=== PATIENT | male | born 1930 | race Caucasian/White ===

== ENCOUNTER → 2017-07-31 | Outpatient (CLI) | payer MEDICARE ==
[~2017-07-31] MED LIST: AEC81 PO; CLOP75TA32 PO; FINA5TAB41 PO; FISH1CAP65 PO; GABA-531 PO; INSNOV SQ; LEVO50TA11 PO; LISI10TA7 PO; LUTE20TA PO; METO-408 PO; MULT-1285 PO; MULT-209 PO; NPH,100V11 SQ; SIMV80TA5 PO; TAMS0.4C32 PO; VITA150T PO
== END | disposition home or self-care (01) ==
LOC: SHCH 08:50
PROVIDERS: ATTEND Internal Medicine Cardiovascular Disease
DX: I25.10 Atherosclerotic heart disease of native coronary artery without angina pectoris (principal); I67.82 Cerebral ischemia
CPT/HCPCS: 93880

== ENCOUNTER → 2018-10-21 | Outpatient (CLI) | payer MEDICARE ==
[~2018-10-21] MED LIST changes: -SIMV80TA5 PO; +SIMV80TA91 PO
== END | disposition home or self-care (01) ==
LOC: SHCH 09:31
PROVIDERS: ATTEND Internal Medicine Cardiovascular Disease
DX: I65.23 Occlusion and stenosis of bilateral carotid arteries (principal); Z95.5 Presence of coronary angioplasty implant and graft
CPT/HCPCS: 93880

== ENCOUNTER → 2020-02-01 | Outpatient (CLI) | payer MEDICARE | END | disposition home or self-care (01) | LOC: SHCH 10:47 | PROVIDERS: ATTEND Internal Medicine Cardiovascular Disease | DX: I65.23 Occlusion and stenosis of bilateral carotid arteries (principal); R01.1 Cardiac murmur, unspecified | CPT/HCPCS: 93306; 93356; 93880 ==

== ENCOUNTER 2020-03-03 08:39 | Observation (INO) | payer MEDICARE ==
[2020-03-01 14:28] LABS: BASOPHILS % (AUTO) 0.5 % (0.0-5.0); EOSINOPHILS % (AUTO) 3.3 % (0.0-8.0); HEMATOCRIT 35.1 % (42-54); LYMPHOCYTES % (AUTO) 56.9 % (21.0-51.0); MEAN CORPUSCULAR HGB CONC 33.6 g/dL (32.0-36.0); MONOCYTES % (AUTO) 7.2 % (3.0-13.0); PLATELET COUNT (AUTO) 149 K/uL (130-400); RED BLOOD CELL COUNT(AUTO) 3.58 MIL/uL (4.50-6.20); RED CELL DISTRIBUTION WIDTH 13.7 % (11.0-15.5); WHITE BLOOD COUNT (AUTO) 8.2 K/uL (4.8-10.8)
[2020-03-01 14:34] LABS: CREATININE 1.2 mg/dL (0.5-1.5); POTASSIUM 4.6 mmol/L (3.5-5.1)
[2020-03-01 14:37] LABS: INR 0.99 (0.85-1.15); PARTIAL THROMBOPLASTIN TIME 24.7 SEC (26.3-35.5); PROTHROMBIN TIME 10.7 SEC (9.6-11.6)
[~2020-03-03] VITALS: Ht 175.3 cm; Wt 116.4 kg
[~2020-03-03 08:39] MED LIST changes: -CLOP75TA32 PO; +DICL2100G TP; +FISH1CAP27 PO; -FISH1CAP65 PO; +INSU100C6 SQ; +LEVO-170 PO; -LEVO50TA11 PO; -MULT-209 PO; +MV-M1TAB39 PO; +SIMV-46 PO; -SIMV80TA91 PO; -VITA150T PO; +vitamin b12 PO
[2020-03-03 09:30] VITALS: BP 161/74
[2020-03-03] MEDS ORDERED: IODIXANOL 320 MG/ML 100 ML VIAL ONE (11:46)
[2020-03-03] MEDS ORDERED: BUPIVACAINE/PF 0.25% 30ML VIAL IJ ONE (11:46)
[2020-03-03] MEDS ORDERED: MEPERIDINE-PF 25 MG/ML SYG ONE ×3 (11:47→13:17)
[2020-03-03] MEDS ORDERED: LIDOCAINE HCL 1% MDV 50ML VIAL ONE (11:47)
[2020-03-03] MEDS ORDERED: MIDAZOLAM HCL 1 MG/ML 2ML VIAL ONE ×3 (11:47→13:17)
[2020-03-03] MEDS ORDERED: CEFAZOLIN SODIUM 1 GM VIAL ONE (11:47)
[2020-03-03] MEDS ORDERED: THROMBIN-JMI 5000 UNIT/VIAL TP ONE (13:06)
[2020-03-03] MEDS ORDERED: ONDANSETRON HCL 4 MG/2 ML VIAL IV PRN (14:45)
[2020-03-03] MEDS ORDERED: DEXTROSE 50%-WATER 50 ML DISP.SYRIN IV PRN ×2 (14:45→16:15)
[2020-03-03] MEDS ORDERED: ACETAMINOPHEN 325 MG TAB PO PRN (16:15)
[2020-03-03] MEDS ORDERED: GLUCAGON 1MG KIT 1 MG ML IM PRN (16:15)
[2020-03-03] MEDS ORDERED: ONDANSETRON HCL 4 MG/2 ML VIAL IVP PRN (16:15)
[2020-03-03] MEDS ORDERED: INSULIN HUMULIN R 100 UNIT/ML 3ML SQ SCH (16:30)
[2020-03-03] MEDS: INSULIN HUMULIN R 100 UNIT/ML 3ML SQ SCH ×2 (17:13→22:01)
[2020-03-03 20:00] VITALS: BP 166/74
[2020-03-03] MEDS ORDERED: APPL TP SCH (21:00)
[2020-03-03] MEDS ORDERED: LISINOPRIL 10 MG TABLET PO SCH (21:00)
[2020-03-03] MEDS ORDERED: DICLOFENAC SODIUM TP SCH (21:00)
[2020-03-03] MEDS ORDERED: INSULIN LISPRO 100 UNIT/ML 3ML SQ SCH (21:00)
[2020-03-03] MEDS ORDERED: TAMSULOSIN HCL 0.4 MG CAP.ER.24H PO SCH (21:00)
[2020-03-03] MEDS ORDERED: SIMVASTATIN 20 MG TABLET PO SCH (21:00)
[2020-03-03] MEDS ORDERED: ASPIRIN 81 MG EC TAB PO SCH (21:00)
[2020-03-03] MEDS ORDERED: INSULIN NPH 100 UNIT/ML 3ML SQ SCH (21:00)
[2020-03-03] MEDS: [UNRECOGNIZED DRUG - OTHER] PO SCH (21:00)
[2020-03-03] MEDS: FISH OIL 1000 MG/CAP PO SCH (21:10)
[2020-03-03] MEDS: GABAPENTIN 300 MG CAPSULE PO SCH (21:11)
[2020-03-03] MEDS: CEFAZOLIN SODIUM 1 GM VIAL IVP SCH (21:12)
[2020-03-04] VITALS: BP 111/90
[2020-03-04 04:00] VITALS: BP 122/58
[2020-03-04] MEDS: CEFAZOLIN SODIUM 1 GM VIAL IVP SCH (05:47)
[2020-03-04] MEDS ORDERED: LEVOTHYROXINE 50 MCG TABLET PO SCH (06:30)
[2020-03-04] MEDS: INSULIN HUMULIN R 100 UNIT/ML 3ML SQ SCH ×2 (06:55→11:54)
[2020-03-04 07:54] VITALS: BP 110/56
[2020-03-04] MEDS ORDERED: INSULIN LISPRO 100 UNIT/ML 3ML SQ SCH (08:00)
[2020-03-04] MEDS: FISH OIL 1000 MG/CAP PO SCH (08:05)
[2020-03-04] MEDS: GABAPENTIN 300 MG CAPSULE PO SCH ×2 (08:05→14:00)
[2020-03-04] MEDS ORDERED: METOPROLOL SUCCINATE 50 MG TAB.SR.24H PO SCH (09:00)
[2020-03-04] MEDS ORDERED: CYANOCOBALAMIN (VITAMIN B-12) 1,000 MCG TABLET PO SCH (09:00)
[2020-03-04] MEDS ORDERED: LUTEIN 20 MG PO SCH (09:00)
[2020-03-04] MEDS: [UNRECOGNIZED DRUG - OTHER] PO SCH (09:00)
[2020-03-04] MEDS ORDERED: INSULIN NPH 100 UNIT/ML 3ML SQ SCH (09:00)
[2020-03-04] MEDS ORDERED: FAMOTIDINE 20MG TAB 20 MG TAB PO SCH (09:00)
[2020-03-04] MEDS ORDERED: FINASTERIDE 5 MG TABLET PO SCH (09:00)
[2020-03-04] MEDS ORDERED: MULTIVITAMIN WITH MINERALS TABLET PO SCH (09:00)
[2020-03-04 11:23] VITALS: BP 111/46
--- NOTE | 2020-03-04 14:00 | NUR ---
MET W PATIENT AND SPOUSE [facility] FOR DC PLANNING LIVES WITH SPOUSE IS SEMI INDEPENDENT, DOES NOT DRIVE , [facility] WILL PROVIDE TRANSPORT, USES A WALKER WHEN OUT OF THE HOUSE; STATES CAN WALK SAFELY IN HOME WITHOUT IT FEELS CONFIDENT FAMILY CAN PROVIDE ANY CARE NEEDED DCP HOME INCISION SITE NOTE WITH MILD SWELLING/REDNESS. SLING IN PLACE, PT STTES WILL KEEP ON TO REMIND HIM OF POST OP RESTRCTIONS. DC TEACHING RE INFORCED Addendum: 03/04/20 at 2154 by PEG HERZOG RN CM Amended: Links added.
== END 2020-03-04 12:49 | disposition home or self-care (01) ==
LOC: DAH 08:39 → DAHIP 08:40 → 4DH 17:05
PROVIDERS: ADMIT Internal Medicine; ATTEND Internal Medicine
DX: I25.5 Ischemic cardiomyopathy (principal); E78.5 Hyperlipidemia, unspecified; E11.9 Type 2 diabetes mellitus without complications; I11.0 Hypertensive heart disease with heart failure; I25.10 Atherosclerotic heart disease of native coronary artery without angina pectoris; I35.8 Other nonrheumatic aortic valve disorders; I44.7 Left bundle-branch block, unspecified; J44.9 Chronic obstructive pulmonary disease, unspecified; I50.22 Chronic systolic (congestive) heart failure; Z45.02 Encounter for adjustment and management of automatic implantable cardiac defibrillator; Z87.891 Personal history of nicotine dependence; Z95.5 Presence of coronary angioplasty implant and graft
CPT/HCPCS: 33225; 33233; 33249; 36415; 71046; 80048; 82948 ×5; 85025; 85610; 85730; 93005; 96374; 96376; A4215; A4221; A4222; A4223 ×3; A4606; A4663; C1769 ×2; C1882; C1894; C1895; C1900; G0378 ×17; J0690 ×3; J1815 ×4; J2175 ×3; J2250 ×3; J3490 ×3; Q9967; 99156; 99157

== ENCOUNTER → 2020-08-18 | Outpatient (CLI) | payer OTHER ==
[~2020-08-18] MED LIST changes: +IOHEXOL-350 75 ML VIAL IV ONE; +LISI10TA24 PO; -LISI10TA7 PO
== END | disposition home or self-care (01) ==
LOC: RAH 07:39
PROVIDERS: ATTEND Internal Medicine
DX: H93.A2 Pulsatile tinnitus, left ear (principal); I65.23 Occlusion and stenosis of bilateral carotid arteries
CPT/HCPCS: 70496; Q9967

== ENCOUNTER → 2021-01-11 | Outpatient (CLI) | payer MEDICARE ==
[~2021-01-11] MED LIST changes: -IOHEXOL-350 75 ML VIAL IV ONE
== END | disposition home or self-care (01) ==
LOC: RAH 12:41
PROVIDERS: ATTEND Orthopaedic Surgery
DX: M84.353A Stress fracture, unspecified femur, initial encounter for fracture (principal); M47.816 Spondylosis without myelopathy or radiculopathy, lumbar region; M51.36 Other intervertebral disc degeneration, lumbar region; M48.062 Spinal stenosis, lumbar region with neurogenic claudication; M16.12 Unilateral primary osteoarthritis, left hip; X58.XXXA Exposure to other specified factors, initial encounter; Y93.89 Activity, other specified; Y92.89 Other specified places as the place of occurrence of the external cause; Y99.8 Other external cause status
CPT/HCPCS: 72131; 72192

== ENCOUNTER → 2021-02-20 | Outpatient (CLI) | payer MEDICARE | END | disposition home or self-care (01) | LOC: SHCH 14:22 | PROVIDERS: ATTEND Internal Medicine Cardiovascular Disease | DX: I87.2 Venous insufficiency (chronic) (peripheral) (principal); I70.203 Unspecified atherosclerosis of native arteries of extremities, bilateral legs | CPT/HCPCS: 93925; 93970 ==

== ENCOUNTER → 2021-11-16 | Outpatient (CLI) | payer MEDICARE ==
[~2021-11-16] MED LIST changes: -DICL2100G TP; -FISH1CAP27 PO; -GABA-531 PO; +HYDR-4766 PO; -MULT-1285 PO; -MV-M1TAB39 PO; +WHEA1POW2 PO; -vitamin b12 PO
== END | disposition home or self-care (01) ==
LOC: SHCH 09:36
PROVIDERS: ATTEND Internal Medicine Cardiovascular Disease
DX: I51.7 Cardiomegaly (principal); E78.5 Hyperlipidemia, unspecified
CPT/HCPCS: 93306

== ENCOUNTER → 2021-11-21 | Outpatient (CLI) | payer MEDICARE | END | disposition home or self-care (01) | LOC: SHCH 12:19 | PROVIDERS: ATTEND Internal Medicine Cardiovascular Disease | DX: I65.23 Occlusion and stenosis of bilateral carotid arteries (principal); I25.10 Atherosclerotic heart disease of native coronary artery without angina pectoris; E78.5 Hyperlipidemia, unspecified | CPT/HCPCS: 93880 ==

== ENCOUNTER → 2021-11-23 | Outpatient (CLI) | payer MEDICARE ==
[~2021-11-23] MED LIST changes: +REGADENOSON 0.4 MG/5 ML PF SYG IVP SCH
== END | disposition home or self-care (01) ==
LOC: SHCH 07:58
PROVIDERS: ATTEND Internal Medicine Cardiovascular Disease
DX: I10 Essential (primary) hypertension (principal); E11.9 Type 2 diabetes mellitus without complications; E78.5 Hyperlipidemia, unspecified; Z95.0 Presence of cardiac pacemaker; Z95.5 Presence of coronary angioplasty implant and graft
CPT/HCPCS: 78452; 93017; 96374; A9500 ×2; J2785